=== PATIENT | female | born 1940 | race Caucasian/White ===

== ENCOUNTER 2021-03-02 23:18 | Emergency (ER) | payer MEDICARE, OTHER, SELFPAY ==
[2021-03-02 23:16] VITALS: BP 188/73; PULSE 59; RESP 18; TEMP 36.6; O2SAT 95
--- NOTE | 2021-03-02 23:38 | W.ED.GENAD ---
Discharge Plan Disposition Patient Disposition: HOME Condition: Good Discharge Details Clinical Impression: Peripheral vertigo ED Provider: Alfredo Luna Home Meds and New Rx's Prescriptions: New meclizine 25 mg tablet 25 mg PO TID Qty: 14 RF: 0 Continued meclizine 12.5 mg Tablet 12.5 mg PO PRN PRNRF: 0 atorvastatin 40 mg Tablet 40 mg PO DAILY RF: 0 lisinopril 5 mg Tablet 10 mg PO DAILY RF: 0 metoprolol succinate 25 mg Tablet Extended Release 24 Hr 25 mg PO DAILY RF: 0 Discharge Instructions Instructions: Benign Paroxysmal Positional Vertigo (ED) Additional Instructions: At this time your symptoms are consistent with peripheral vertigo. We will send you home with some nausea medicines called Zofran to take every 4-6 hours as needed. We will also send you home with tablets of meclizine, you can take 1 tablet every 6-8 hours as needed. If you still need additional meclizine we have given you a prescription that you can fill at your local pharmacy. Please drink plenty of fluids, stay well-hydrated. If you notice any worsening of your symptoms, or any new symptoms such as vomiting, diarrhea, fever, chills, shortness of breath, chest pain, numbness, weakness, or fainting , please return immediately to the emergency department for reevaluation. Please follow up with your primary care provider as soon as possible for reassessment and reevaluation. As always, it was a pleasure participating in your medical care today. Medical Decision Making This is a 80-year-old female with a past medical history of bradycardia with s subsequent pacemaker placement, and a history of vertigo who presents today for evaluation of sudden onset vertigo. Patient states that she was at dinner, she turned her head to the right and noticed a sudden onset of her vertigo similar to her previous episodes in the past. She denies any weakness or vision change. She does admit to room spinning sensation to the right. She denies any trauma, headache, fever or chills. She denies any chest pain or shortness of breath. She did have an episode of vomiting, and she was given 4 mg of Zofran by EMS. This did improve her symptoms. She denies any other complaints at this time. She is visiting from [place]. She denies history of stroke or aneurysm. Physical exam demonstrates unidirectional fatigable right-sided horizontal nystagmus. No neurologic deficits. No evidence of rotatory or vertical nystagmus. [place]-Hallpike maneuver to the right worsens pain, symptoms consistent with peripheral vertigo. Inconsistent with central event or cerebellar stroke. She has no ataxia. No central cerebellar abnormality findings. Will give meclizine, perform Finn maneuver, monitor closely and reassess. 1:58 AM Finn maneuver was performed x2, and after the Finn maneuver and meclizine and Zofran the patient is feeling much better. She is able to tolerate p.o., she is able to ambulate well. She feels well and would like to go home. Repeat neurologic exam continues to show no focal neurologic deficits. Discussed red flags which to return. Will give meclizine and Zofran for home use as needed. Patient again reiterates that her symptoms feel similar to previous peripheral vertigo episodes. Symptoms at this time are inconsistent with a central neurologic event. I have extensively reviewed the treatment plan and discharge instructions with the patient. I have addressed all patient concerns at this time. The patient was made aware of what symptoms to monitor for that would warrant a return to the emergency department. Discussed the plan with the patient, they demonstrate verbal understanding and agreement with our assessment and plan at this time. The documentation in this chart was dictated using [employer] dictation software. Please excuse any dictation errors. HPI General Date/Time Provider Initiated Documentation: 03/02/21 23:18. HPI Narrative: This is a 80-year-old female with a past medical history of bradycardia with s subsequent pacemaker placement, and a history of vertigo who presents today for evaluation of sudden onset vertigo. Patient states that she was at dinner, she turned her head to the right and noticed a sudden onset of her vertigo similar to her previous episodes in the past. She denies any weakness or vision change. She does admit to room spinning sensation to the right. She denies any trauma, headache, fever or chills. She denies any chest pain or shortness of breath. She did have an episode of vomiting, and she was given 4 mg of Zofran by EMS. This did improve her symptoms. She denies any other complaints at this time. She is visiting from [place]. She denies history of stroke or aneurysm. Related Data Home Medications Medication Instructions Recorded Confirmed atorvastatin 40 mg PO DAILY 03/02/21 03/02/21 lisinopril 10 mg PO DAILY 03/02/21 03/02/21 meclizine 12.5 mg PO PRN PRN 03/02/21 03/02/21 metoprolol succinate 25 mg PO DAILY 03/02/21 03/02/21 meclizine 25 mg PO TID #14 tab 03/03/21 Previous Rx's Medication Instructions Recorded meclizine 25 mg PO TID #14 tab 03/03/21 Allergies Allergy/AdvReac Type Severity Reaction Status Date / Time No Known Drug Allergies AdvReac Unverified 03/02/21 23:24 General Stated Complaint: Dizzy/Sync CORNELIA: 3 Review of Systems All systems reviewed & are unremarkable except as noted in HPI and below PFSH Social History Smoking risk assessment performed?: No Exam Narrative Exam Narrative: 1.Const: Well-nourished, Well-developed, appearing stated age 2.Eyes: PERRL, no conjunctival injection, and symmetrical lids. 3.ENT: Atraumatic external nose and ears. Moist MM. Neck: Symmetric, trachea midline, No thyromegaly. 4.CVS: +S1/S2, No murmurs or gallops. Peripheral pulses 2+ and equal in all extremities. Brisk capillary refill in all extremities. 5.RESP: Unlabored respiratory effort. Clear to auscultation bilaterally. No wheezes rales or rhonchi 6.GI: Soft, Nontender/Nondistended, No hepatosplenomegaly. No guarding or rebound. 7.MSK: Normocephalic/Atraumatic, Extremities w/o deformity or ttp No cyanosis or clubbing, Normal movement of all extremities 8.Skin: Warm, Dry. No rashes or lesions. 9.Neuro: technical assistance consultant II-XII grossly intact. Sensation grossly intact, no focal neurologic deficits. All 6 cardinal planes of vision are fully intact. No evidence of rotatory or vertical nystagmus. The patient demonstrated a normal [id number]-[id number]-pwuvyk, good dexterity. There was no evidence of dysdiadochokinesia. Patient was able to ambulate without difficulty. There was no wide-based gait. Vbem-qj-wvei testing was normal. Sensation was intact bilaterally as well as muscle strength bilaterally for all extremities. Patient was able to verbalize butter cup with no slurring, or miss pronunciation. Patient demonstrates horizontal unidirectional nystagmus that is fatigable to the right. No leftward nystagmus, no vertical or rotatory. Head impulse test is positive for notable worsening of her symptoms on the right. Test of skew shows no vertical correction. Minimal horizontal correction. [place]-Hallpike maneuver was performed and demonstrates notable exacerbation of her symptoms to the right. 10.Psych: (AAO) x3. Appropriate mood and affect Course Vital Signs Vital signs: Vital Signs Temperature 36.6 C 03/02/21 23:16 Pulse 59 L 03/02/21 23:16 Respiratory Rate 18 03/02/21 23:16 Blood Pressure 188/73 H 03/02/21 23:16 Pulse Oximetry 95 03/02/21 23:16 Temperature 36.6 C 03/02/21 23:16 Temperature Source Skin 03/02/21 23:16 Pulse 59 L 03/02/21 23:16 Respiratory Rate 18 03/02/21 23:16 Blood Pressure 188/73 H 03/02/21 23:16 Blood Pressure Position Supine 03/02/21 23:16 Pulse Oximetry 95 03/02/21 23:16 Oxygen Delivery Method Room Air 03/02/21 23:16 Oxygen Flow Rate 0 03/02/21 23:16 Pain Level 0 03/02/21 23:16
[2021-03-02] MEDS: Meclizine 25 MG TAB PO (23:40)
[2021-03-03] MEDS: Meclizine 25 MG TAB PO (00:47)
[2021-03-03] MEDS: Ondansetron O.D.T. 4 MG TABEF PO (00:48)
[2021-03-03] MEDS: Ondansetron O.D.T. 4 MG TABEF, 3 TABS/BTL PO (02:04)
[2021-03-03] MEDS: Meclizine 25 MG TAB 125 MG PO (02:06)
== END 2021-03-03 02:15 | disposition home or self-care (01) ==
LOC: ER 03-03 02:25
PROVIDERS: Emergency Provider Student in an Organized Health Care Education/Training Program
DX: H81.399 Other peripheral vertigo, unspecified ear (principal)
CPT/HCPCS: 99283